=== PATIENT | female | born 1990 | race African-American/Black ===

== ENCOUNTER 2022-03-19 08:44 | Emergency (ER) | payer MEDICAID, OTHER ==
[~2022-03-19] VITALS: Ht 165.1 cm; Wt 97.2 kg
[2022-03-19 11:22] LABS: Urine Bacteria NONE SEEN /hpf (None Seen); Urine Blood TRACE /uL (Negative); Urine Mucus FEW (None Seen); Urine Specific Gravity 1.025 (1.001-1.035); Urine WBC 88 /hpf (0 - 5)
[2022-03-19] MEDS ORDERED: cefTRIAXone SOD 1,000 MG VL IM ONE (11:45)
[2022-03-19] MEDS ORDERED: PHENAZOPYRIDINE HCL 100 MG TAB PO ONE (11:45)
[2022-03-19] MEDS ORDERED: PHEN200T16 PO (11:48)
[2022-03-19] MEDS ORDERED: BACDST PO (11:48)
[2022-03-19 11:55] VITALS: BP 128/85
== END 2022-03-19 12:07 | disposition home or self-care (01) ==
LOC: ER 08:44
DX: N39.0 Urinary tract infection, site not specified (principal); Z79.899 Other long term (current) drug therapy
CPT/HCPCS: 81001; 81025; 96372; 99283; J0696

== ENCOUNTER 2022-11-30 13:34 | Emergency (ER) | payer MEDICAID ==
[~2022-11-30] VITALS: Ht 165.1 cm; Wt 96.9 kg
[~2022-11-30 13:34] MED LIST: BACDST PO; PHEN-922 PO
[2022-11-30 14:19] LABS: Urine Bacteria NONE SEEN /hpf (None Seen); Urine Blood 3+ /uL (Negative); Urine Mucus MODERATE (None Seen); Urine Specific Gravity 1.029 (1.001-1.035); Urine WBC 39 /hpf (0 - 5)
[2022-11-30 14:21] LABS: Basophils # (auto) 0.1 10 ^3/uL (0-0.2); Eosinophils # (auto) 0.1 10 ^3/uL (0-0.8); Lymphocytes # (auto) 1.7 10 ^3/uL (0.4-5.4); Lymphocytes % (auto) 17.1 % (10.0-50.0); Monocytes # (auto) 0.6 10 ^3/uL (0-1.3); Neutrophils # (auto) 7.5 10 ^3/uL (1.6-8.6)
[2022-11-30 14:23] LABS: Basophils % (auto) 1.3 % (0.0-2.0); Eosinophils % (auto) 0.9 % (0.0-7.0); Hematocrit 36.4 % (36.0-46.0); Hemoglobin 11.3 g/dL (12.2-16.2); Mean Corpuscular Hemoglobin 22.2 pg (28.0-32.0); Mean Corpuscular Hgb Conc. 31.1 g/dL (32.0-36.0); Mean Corpuscular Volume 71.3 fL (80.0-100.0); Monocytes % (auto) 6.1 % (0.0-12.0); Neutrophils % (auto) 74.6 % (37.0-80.0); Red Blood Cells 5.11 10^6/uL (4.0-5.20)
[2022-11-30 14:44] LABS: Albumin 3.6 g/dL (3.4-5.0); Calcium 8.4 mg/dL (8.5-10.1); Potassium 3.7 mmol/L (3.5-5.1)
[2022-11-30 14:47] LABS: Bilirubin, Total 0.3 mg/dL (0.2-1.0); Total Protein 7.6 g/dL (6.4-8.2)
[2022-11-30 20:06] VITALS: BP 142/82; PULSE 98; RESP 16; TEMP 98; O2SAT 100
== END 2022-11-30 20:08 | disposition home or self-care (01) ==
LOC: ER 13:34
DX: O03.9 Complete or unspecified spontaneous abortion without complication (principal); R10.2 Pelvic and perineal pain; Z3A.12 12 weeks gestation of pregnancy; Z88.1 Allergy status to other antibiotic agents; Z88.6 Allergy status to analgesic agent
CPT/HCPCS: 36415; 76801; 76817; 80053; 81001; 81025; 84702; 85025